=== PATIENT | male | born 2005 | race Caucasian/White ===

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

== ENCOUNTER 2023-01-18 21:00 | Emergency (ER) | payer OTHER ==
[2023-01-18 21:19] VITALS: TEMP 99
--- NOTE | 2023-01-18 22:39 | ED ---
Back Pain HPI - General Chief Complaint: Back Pain/Injury Stated Complaint: Back Pain Time Seen by Provider: 01/18/23 22:35 Source: patient Limitations: no limitations - History of Present Illness Initial Comments: 17-year-old male presenting with chief complaint of lower back pain. Patient has history of cognitive delay and mother is present to help supplement history. About a month ago patient had an injury to the lower back. Mother does not know the explicit injury but states that the patient often lifts heavy. He has had worsening pain since then. Over the last 2 weeks he has had intermittent loss of bowel or bladder function.. I have waited for about a month for a CT which was supposed to be scheduled for Saturday but they were told today that it was canceled. The patient has had intermittent weakness to the lower extremities. No dysuria or hematuria. No fevers or chills. No nausea, vomiting, abdominal pain. - Related Data Home Medications Medication Instructions Recorded Confirmed Famotidine [Pepcid] 20 mg PO DAILY 06/05/19 05/30/20 Omeprazole 20 mg PO HS 06/05/19 05/30/20 Atomoxetine HCl [Strattera] 60 mg PO AC-SUPPER@1830 05/30/20 05/30/20 Cetirizine HCl [Zyrtec] 10 mg PO HS 05/30/20 05/30/20 QUEtiapine [SEROquel] 100 mg PO HS 05/30/20 05/30/20 Sertraline [Zoloft] 100 mg PO HS 05/30/20 05/30/20 metFORMIN HCL [metFORMIN HCL ER] 1,500 mg PO HS 05/30/20 05/30/20 metFORMIN HCL [metFORMIN HCL ER] 750 mg PO DAILY 05/30/20 05/30/20 Allergies Allergy/AdvReac Type Severity Reaction Status Date / Time Cephalosporins Allergy Rash/Hives Verified 06/01/20 18:44 Review of Systems ROS Statement: Those systems with pertinent positive or pertinent negative responses have been documented in the HPI. ROS Other: All systems not noted in ROS Statement are negative. Past Medical History Past Medical History: Diabetes Mellitus, Seizure Disorder Additional Past Medical History / Comment(s): Mom states has some learning disability and functions at the age of a 10 year old, ODD History of Any Multi-Drug Resistant Organisms: None Reported Past Surgical History: Hernia Repair Additional Past Surgical History / Comment(s): wisdom teeth Past Anesthesia/Blood Transfusion Reactions: Previous Problems w/ Anesthesia Additional Past Anesthesia/Blood Transfusion Reaction / Comment(s): mom states "is grabby with females in post op" states "staff should be florence with him, and not to baby him" Past Psychological History: ADD/ADHD, Bipolar Smoking Status: Never smoker Past Alcohol Use History: None Reported Past Drug Use History: None Reported General Exam - General Exam Comments Initial Comments: Visual Physical Exam Vital signs reviewed General: Well-appearing, nontoxic, no acute distress. Head: Normocephalic, atraumatic Eyes: PERRLA, EOMI ENT: Airway patent Chest: Nonlabored breathing Skin: No visual rash, normal skin tone Neuro: Alert and oriented 3 Musculoskeletal: No gross abnormalities Limitations: no limitations General appearance: alert, in no apparent distress Head exam: Present: atraumatic, normocephalic, normal inspection Eye exam: Present: normal appearance, EOMI Neck exam: Present: normal inspection, full ROM Respiratory exam: Present: normal lung sounds bilaterally. Absent: respiratory distress, wheezes, rales, rhonchi, stridor Cardiovascular Exam: Present: regular rate, normal rhythm, normal heart sounds. Absent: systolic murmur, diastolic murmur, rubs, gallop, clicks Rectal exam: Present: normal rectal tone Extremities exam: Present: normal inspection Back exam: Present: normal inspection, tenderness Neurological exam: Present: alert, oriented X3, CN II-XII intact Psychiatric exam: Present: normal affect, normal mood Skin exam: Present: warm, dry, intact, normal color. Absent: rash Course Vital Signs 01/18/23 01/18/23 01/19/23 21:16 22:52 00:58 Temperature 99 F Pulse Rate 97 95 77 Respiratory 16 20 18 Rate Blood Pressure 125/82 147/75 152/90 O2 Sat by Pulse 96 96 97 Oximetry Medical Decision Making - Medical Decision Making Was pt. sent in by a medical professional or institution (, PA, ETHICAL HACKER, urgent care, hospital, or skilled nursing...) When possible be specific @ -No Did you speak to anyone other than the patient for history (EMS, parent, family, police, friend...)? What history was obtained from this source @ -History is supplemented by the patient's mother/legal guardian Did you review nursing and triage notes (agree or disagree)? Why? @ -I reviewed the triage note and disagree, patient and mother state there was an initial injury Were old charts reviewed (outside hosp., previous admission, EMS record, old EKG, old radiological studies, urgent care reports/EKG's, skilled nursing records)? Report findings @ -No old charts were reviewed Differential Diagnosis (chest pain, altered mental status, abdominal pain women, abdominal pain men, vaginal bleeding, weakness, fever, dyspnea, syncope, headache, dizziness, GI bleed, back pain, seizure, CVA, palpatations, mental health, musculoskeletal)? @ - [facility] Differential Back Pain: Strain, zoster, cauda equina syndrome, epidural abscess, vertebral osteomyelitis, discitis, fracture, subluxation, disc herniation, DJD, spinal stenosis, dissection, AAA, pancreatitis, peptic ulcer disease, pyelonephritis, kidney stone this is not meant to be an all-inclusive list. EKG interpreted by me (3pts min.). @ -As above X-rays interpreted by me (1pt min.). @ -None done CT interpreted by me (1pt min.). @ -No evidence for spinal fracture. Grade 1 anterior listhesis of L4 and L5. Minimal degeneration changes throughout the spine. No evidence for significant neural foraminal or spinal canal stenosis. L5 left marvel-sacralization of the vertebrae transverse process. U/S interpreted by me (1pt. min.). @ -None done What testing was considered but not performed or refused? (CT, X-rays, U/S, labs)? Why? @ -None What meds were considered but not given or refused? Why? @ -None Did you discuss the management of the patient with other professionals (professionals i.e. , PA, ETHICAL HACKER, lab, RT, psych nurse, community mental health social worker, boom stick man, teacher, special technical operations officer, case management coordinator)? Give summary @ -Spoke with Dr. Oquendo at [facility], accepted transfer Was smoking cessation discussed for >3mins.? @ -No Was critical care preformed (if so, how long)? @ -No Were there social determinants of health that impacted care today? How? (Homelessness, low income, unemployed, alcoholism, drug addiction, transportation, low edu. Level, literacy, decrease access to med. care, senior living, rehab)? @ -No Was there de-escalation of care discussed even if they declined (Discuss DNR or withdrawal of care, Hospice)? DNR status @ -No What co-morbidities impacted this encounter? (DM, HTN, Smoking, COPD, CAD, Cancer, CVA, ARF, Chemo, Hep., AIDS, mental health diagnosis, sleep apnea, morbid obesity)? @ -None Was patient admitted / discharged? Hospital course, mention meds given and route, prescriptions, significant lab abnormalities, going to OR and other pertinent info. @ -17-year-old male presenting with chief complaint of worsening lower back pain over the last month. Patient has had intermittent loss of bowel and bladder control, as well as lower extremity weakness and numbness. On physical examination there is normal rectal tone. CT shows no significant canal stenosis. Given the patient's high risk features I believe that stat MRI and evaluation by neurosurgery is in his best interest. Patient will be transferred to [facility]. Patient and mother are agreeable with this plan. I d iscussed this case with my attending Dr. Frank. Undiagnosed new problem with uncertain prognosis? @ -No Drug Therapy requiring intensive monitoring for toxicity (Heparin, Nitro, Insulin, Cardizem)? @ -No Were any procedures done? @ -No Diagnosis/symptom? @ -Lower back pain, loss of bowel or bladder control, lower extremity weakness Acute, or Chronic, or Acute on Chronic? @ -acute Uncomplicated (without systemic symptoms) or Complicated (systemic symptoms)? @ -Complicated Side effects of treatment? @ -No Exacerbation, Progression, or Severe Exacerbation? @ -No Poses a threat to life or bodily function? How? (Chest pain, [place], [place], pneumonia, PE, COPD, DKA, ARF, appy, cholecystitis, CVA, Diverticulitis, Homicidal, Suicidal, threat to staff... and all critical care pts) @ -Yes Disposition Clinical Impression: Lower back pain, Loss of bladder control, Lower extremity weakness Disposition: OTHER INSTITUTION NOT DEFINED Condition: Stable Referrals: None,Stated [Primary Care Provider] - 1-2 days Time of Disposition: 00:26 - Out of Hospital Transfer - Req. Specs Out of Hospital Transfer - Requested Specifics: Other Emergency Center ([facility])
[2023-01-18] MEDS ORDERED: KETOROLAC 15 MG/ML 1 ML VIAL IM STA (22:40)
[2023-01-18] MEDS ORDERED: LIDOCAINE 5% PATCH TOPICAL SCH (22:45)
--- NOTE | 2023-01-18 23:34 | CT ---
EXAMINATION TYPE: CT lumbar spine wo con CT DLP: 1141. mGycm, Automated exposure control for dose reduction was used. DATE OF EXAM: 01/18/2023 11:07 PM COMPARISON: None. CLINICAL INDICATION:Male, 17 years old with history of back pain; TECHNIQUE: Multiple axial images were obtained from the midportion of T11 through the sacroiliac chi nts. Soft tissue and bone windows in coronal and sagittal planes were obtained and reviewed. 3-D ref ormats of the bones were created on a separate workstation and submitted for review. Contrast used, none. Oral contrast used: none. FINDINGS: Alignment: There are 5 lumbar type vertebral bodies. Grade 1 anterolisthesis of L4 and L5. Bone: No evidence of fracture is identified. L5 left hemisacralization of the vertebrae transverse p rocess. Discs: T12-L1: No spinal canal or neural foraminal stenosis is identified. L1-L2: No spinal canal or neural foraminal stenosis is identified. L2-L3: No spinal canal or neural foraminal stenosis is identified. L3-L4: No spinal canal or neural foraminal stenosis is identified. L4-L5: No spinal canal or neural foraminal stenosis is identified. L5-S1: No spinal canal or neural foraminal stenosis is identified. Other: None IMPRESSION: 1. No evidence for spinal fracture. 2. Grade 1 anterolisthesis of L4 and L5. 3. Minimal degeneration changes throughout the spine. No evidence for significant neural foraminal or spinal canal stenosis. 4. L5 left hemisacralization of the vertebrae transverse process.
[2023-01-18] MEDS ORDERED: MORPHINE SULFATE 4 MG/ML SYRINGE IVP STA (23:58)
[2023-01-19] MEDS ORDERED: DEXAMETHASONE SOD PHOSPHATE 10 MG/ML 1 ML VIAL IVP STA (00:22)
[2023-01-19 01:02] VITALS: BP 152/90; PULSE 77; RESP 18
== END 2023-01-19 01:02 | disposition other institution (70) ==
LOC: EEVIPCON 21:00 → EC 21:00
DX: M43.16 Spondylolisthesis, lumbar region (principal); M79.662 Pain in left lower leg; R53.1 Weakness; R39.81 Functional urinary incontinence; E11.9 Type 2 diabetes mellitus without complications; F31.9 Bipolar disorder, unspecified; Z79.899 Other long term (current) drug therapy; Z79.2 Long term (current) use of antibiotics; Z88.1 Allergy status to other antibiotic agents
CPT/HCPCS: 99284; 96372; 96374; 72131; J2270; J1885

== ENCOUNTER → 2023-12-23 | Outpatient (CLI) | payer OTHER ==
--- NOTE | 2023-12-24 09:18 | CT ---
EXAMINATION TYPE: CT thoracic spine wo con CT DLP: 1904 mGycm, Automated exposure control for dose reduction was used. DATE OF EXAM: 12/23/2023 6:50 PM COMPARISON: None. CLINICAL INDICATION:Male, 18 years old with history of Z98.1 ARTHRODESIS STATUS; PHH, difficulty walk ing post-op T3/T4 sx TECHNIQUE: Axial images of the thoracic spine were obtained without contrast. Coronal and sagittal re formats were performed. Contrast used: mL of , none Oral contrast used: none FINDINGS: Surgical changes with hardware in place at T3 and T4. Hardware is intact. No evidence for l oosening or metal placement. The adjoining endplates at T3-T4 not fused and demonstrate degeneration changes with osseous body within the disc space possibly within a Schmorl's node. There is no evidenc e of fracture. Minimal degeneration changes throughout the spine. The spinal cord and neural foramina appear patent. There is narrowing of the thecal sac at the level of C4 series 3 image 50 compared to the remainder of the levels. Osseous spur noted at T5-T6 on the right. IMPRESSION: 1. Postsurgical changes with hardware intact and appropriate position. The T3-T4 adjoining endplates are not fused. There is mild bony growth at the level of T4 which may mildly narrow the spinal canal . 2. Osseous spurring at level T5-T6 also present which may mildly displace the thecal sac leftward. 3. No evidence for severe spinal canal or neural foraminal stenosis.
== END | disposition home or self-care (01) ==
LOC: RADCTMAIN 18:16
PROVIDERS: ATTEND Nurse Practitioner Family
DX: R26.2 Difficulty in walking, not elsewhere classified (principal); Z98.1 Arthrodesis status
CPT/HCPCS: 72128

== ENCOUNTER → 2024-06-16 | Outpatient (CLI) | payer OTHER ==
[2024-06-16 14:41] VITALS: BP 119/77; PULSE 94; RESP 16; TEMP 98.3
--- NOTE | 2024-06-16 15:34 | P.SLEEP ---
History of Present Illness H&P Date: 06/16/24 This is a 18-year-old male patient, coming in to be evaluated for sleep apnea. His mother, Tanja, works for [employer] and she is concerned of the possibility of him having obstructive sleep apnea. However, the patient has a extensive number of comorbidities. 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 Subsequently, over the years, he was diagnosed having oppositional defiance, chronic anxiety, chronic bipolar disorder/depression and ongoing learning disabilities. Since young age, the patient also has had difficulties with sleepwalking and sleep talking and is currently snoring loud. In regards to his ongoing bipolar/depression, the patient is being followed up at [facility]. The patient has had episodes where he has not fallen asleep for several days and ultimately he would feel exhausted and fall asleep. Those episodes have not recurred for the past 1 year at least that the patient is currently on a combination of Lamictal and Zoloft. He also suffers from chronic back pain. He has had T3/4 spine fracture with spinal cord compression due to power lifting and he also has had another L4 fracture. He has undergone fusion of the thoracic spine and currently he is on gabapentin and tizanidine and baclofen. He suffers from chronic bronchial asthma. He smokes marijuana, approximately 3 joints a day. In terms of his sleep, the patient goes to bed at around 11 PM and wakes up between 8 and 9 AM in the morning. He feels sleepy during the day. Sometimes takes more than 30 minutes to fall asleep. This is not consistent. He snores loud and he feels excessively fatigued and sleepy during the day. His current [place] score is at 4. He is restless during sleep. He is not doing a whole lot of sleep walking for now. His current [place] score is at 4. He is taking clonidine for his sleep and a dose of 0.2 mg at bedtime. No recent weight gain. He does not drive. No history of any seizure activity. No sleep paralysis, hallucinations or cataplexy. His sleep is fragmented. He is still living with his mother. Review of Systems Constitutional: Reports daytime sleepiness, Reports fatigue, Reports weakness Eyes: denies as per HPI, denies blurred vision, denies bulging eye, denies decreased vision, denies diplopia, denies discharge, denies dry eye, denies irritation, denies itching, denies pain, denies photophobia, denies loss of peripheral vision, denies loss of vision, denies tunnel vision/blind spots Ears: deny: decreased hearing, ear discharge, earache, tinnitus Ears, nose, mouth and throat: Reports as per HPI Breasts: absent: as per HPI, gynecomastia Cardiovascular: Reports as per HPI Respiratory: Reports snoring Gastrointestinal: Reports as per HPI Genitourinary: Reports as per HPI Musculoskeletal: Reports as per HPI (Back pain) Musculoskeletal: absent: ankle pain, ankle stiffness, ankle swelling, as per HPI, elbow pain, elbow stiffness, elbow swelling, foot pain, foot stiffness, foot swelling, hand pain, hand stiffness, hand swelling, hip pain, hip stiffness, hip swelling, knee pain, knee stiffness, knee swelling, shoulder pain, shoulder stiffness, shoulder swelling, wrist pain, wrist stiffness, wrist swelling Integumentary: Reports as per HPI Neurological: Reports as per HPI Psychiatric: Reports anxiety, Reports depression (Bipolar disorder), Reports hypersomnia, Reports insomnia, Reports irritability, Reports mood swings, Reports sleep disturbances Endocrine: Reports as per HPI, Reports fatigue Hematologic/Lymphatic: Reports as per HPI Allergic/Immunologic: Reports as per HPI Past Medical History Past Medical History: Asthma, Diabetes Mellitus, GERD/Reflux, Seizure Disorder Additional Past Medical History / Comment(s): Mom states has some learning disability and functions at the age of a 10 year old, ODD, back pain, allergies (if misses Citirizine for more than 2 days gets a sinus infection, per mom/LG) , sinus headaches, arthritis, snoring, headaches, acid reflux, restless legs History of Any Multi-Drug Resistant Organisms: None Reported Past Surgical History: Back Surgery, Hernia Repair Additional Past Surgical History / Comment(s): wisdom teeth, hardware in back, Past Anesthesia/Blood Transfusion Reactions: Previous Problems w/ Anesthesia Additional Past Anesthesia/Blood Transfusion Reaction / Comment(s): mom states "is grabby with females in post op" states "staff should be [place] with him, and not to baby him" Past Psychological History: ADD/ADHD, Anxiety, Bipolar, Depression Additional Psychological History / Comment(s): ODD Smoking Status: Former smoker Past Alcohol Use History: Rare Past Drug Use History: Marijuana - Past Family History Mother Family Medical History: Asthma, Diabetes Mellitus, Fibromyalgia, GERD/Reflux, Pneumonia Additional Family Medical History / Comment(s): Arthritis, lung problems (COPD - scar tissue on both lungs - at least 25%), snoring, headaches, liver issues - mass found - awaiting ultersound (family hx of liver cancer), mental illness (Bipolar), restless legs (sister has bipolar, depression, anxiety, borderline personality disorder, acid reflux, headaches,arthritis, asthma) father: brain injury, diabetes Medications and Allergies Home Medications Medication Instructions Recorded Confirmed Type Famotidine [Pepcid] 20 mg PO DAILY 06/05/19 05/30/20 History Omeprazole 20 mg PO HS 06/05/19 05/30/20 History Atomoxetine HCl [Strattera] 60 mg PO [id number] 05/30/20 05/30/20 History Cetirizine HCl [Zyrtec] 10 mg PO HS 05/30/20 06/16/24 History QUEtiapine [SEROquel] 100 mg PO HS 05/30/20 05/30/20 History Sertraline [Zoloft] 100 mg PO HS 05/30/20 06/16/24 History metFORMIN HCL [metFORMIN HCL ER] 1,500 mg PO HS 05/30/20 05/30/20 History metFORMIN HCL [metFORMIN HCL ER] 750 mg PO DAILY 05/30/20 05/30/20 History Baclofen 10 mg PO QID 06/16/24 06/16/24 History Ferrous Sulfate [Feosol] 325 mg PO DAILY 06/16/24 06/16/24 History Gabapentin [Neurontin] 300 mg PO TID 06/16/24 06/16/24 History Pantoprazole [Protonix] 40 mg PO DAILY 06/16/24 06/16/24 History Triamcinolone 0.1% Cream [Kenalog 0.1 06/16/24 History 0.1% Cream] cloNIDine 0.2 MG/24HR PATCH 0.2 mg PO DAILY 06/16/24 06/16/24 History [Catapres-TTS] lamoTRIgine [LaMICtal ODT] 50 mg PO DAILY 06/16/24 06/16/24 History tiZANidine HCL 2 mg PO TID 06/16/24 06/16/24 History Allergies Allergy/AdvReac Type Severity Reaction Status Date / Time Cephalosporins Allergy Rash/Hives Verified 06/01/20 18:44 Physical Exam Vitals: Vital Signs Temp Pulse Resp BP Pulse Ox 06/16/24 14:41 98.3 F 94 16 119/77 96 Intake and Output 06/16/24 06/16/24 06/16/24 06:59 14:59 22:59 Other: Weight 107.218 kg The patient appeared well nourished and normally developed. Vital signs as documented. The patient has a Mallampati class IV Head exam is unremarkable. No scleral icterus or corneal arcus noted. Neck is without jugular venous distension, thyromegaly, or carotid bruits. Carotid upstrokes are brisk bilaterally. Lungs are clear to auscultation and percussion. Cardiac exam reveals the PMI to be normally sized and situated. Rhythm is regular. First and second heart sounds normal. No murmurs, rubs or gallops. Scar of the previous T-spine surgery over his back Abdominal exam reveals normal bowel sounds, no masses, no organomegaly and no aortic enlargement. Extremities are nonedematous and both femoral and pedal pulses are normal. Examination of the skin revealed no evidence of significant rashes, suspicious appearing nevi or other concerning lesions. Neurologically, the patient is awake and alert and the patient does not have any focal neurological deficit. Cranial nerves are essentially intact. Assessment and Plan Plan: Chronic fatigue/sleepiness, currently under investigation. Comorbidities are multiple. First and foremost, the patient has had a traumatic brain injury during childhood. The patient's has had sleep disturbance for many years and he was having episodes of insomnia followed by hypersomnia. This could have been related to bipolar disorder and currently the patient is on a combination of Zoloft and Lamictal. He is known to have chronic anxiety/bipolar disorder/depression in addition to learning disability and oppositional defiance. Possibility of obstructive sleep apnea cannot be completely ruled out. He snores loud. He does have sleep fragmentation. His current [place] score is 4. History of traumatic brain injury History of sleepwalking and sleep talking during childhood Loud snoring Chronic anxiety/bipolar disorder/depression Oppositional defiance Bronchial asthma, currently inactive and stable T3/4 fracture with cord compression requiring thoracic spine surgery and fusion L4 fracture Chronic back pain Headaches Acid reflux Daily marijuana smoking Plan Continue current medication Continue following up with [facility] regarding chronic anxiety/depression/bipolar disorder. Patient is currently on a combination of Zoloft and Lamictal Importance of sleep hygiene measures was emphasized Maintain regular sleep schedule Weight loss Optimize pain and the patient is taking muscle relaxants Proceed with a screening polysomnography to rule out possibility of obstructive sleep apnea and further recommendations to follow based on the findings. Sleep Note - Sleep Data ESS Total: 11 - Sleep Note Sleep Note: Temperature: 98.3 F Pulse Rate: 94 Respiratory Rate: 16 Blood Pressure: 119/77 SpO2: 96 Height: 5 ft 11.2 in Weight: 107.218 kg BMI: Neck Circumference: 19.2
== END ==
LOC: 3 N SLEEP 13:43
PROVIDERS: ATTEND Internal Medicine Critical Care Medicine
DX: G47.33 Obstructive sleep apnea (adult) (pediatric) (principal); R06.83 Snoring; F41.9 Anxiety disorder, unspecified; F32.A Depression, unspecified; F91.3 Oppositional defiant disorder; J45.909 Unspecified asthma, uncomplicated; M54.9 Dorsalgia, unspecified; G89.29 Other chronic pain; R51.9 Headache, unspecified; K21.9 Gastro-esophageal reflux disease without esophagitis; F12.90 Cannabis use, unspecified, uncomplicated; F51.3 Sleepwalking [somnambulism]; Z91.81 History of falling; Z87.820 Personal history of traumatic brain injury
CPT/HCPCS: 99211

== ENCOUNTER 2024-07-20 19:40 | Outpatient (CLI) | payer OTHER ==
--- NOTE | 2024-07-26 23:42 | P.PCN ---
Date of Procedure: 07/20/24 Operative Findings: Polysomnography report Date of service is 07/20/2024 History This is a 18-year-old male patient, coming in to be evaluated for sleep apnea. His mother, Tanja, works for [employer] and she is concerned of the possibility of him having obstructive sleep apnea. However, the patient has a extensive number of comorbidities. 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 Subsequently, over the years, he was diagnosed having oppositional defiance, chronic anxiety, chronic bipolar disorder/depression and ongoing learning disabilities. Since young age, the patient also has had difficulties with sleepwalking and sleep talking and is currently snoring loud. In regards to his ongoing bipolar/depression, the patient is being followed up at [facility]. The patient has had episodes where he has not fallen asleep for several days and ultimately he would feel exhausted and fall asleep. Those episodes have not recurred for the past 1 year at least that the patient is currently on a combination of Lamictal and Zoloft. He also suffers from chronic back pain. He has had T3/4 spine fracture with spinal cord compression due to power lifting and he also has had another L4 fracture. He has undergone fusion of the thoracic spine and currently he is on gabapentin and tizanidine and baclofen. He suffers from chronic bronchial asthma. He smokes marijuana, approximately 3 joints a day. In terms of his sleep, the patient goes to bed at around 11 PM and wakes up between 8 and 9 AM in the morning. He feels sleepy during the day. Sometimes takes more than 30 minutes to fall asleep. This is not consistent. He snores loud and he feels excessively fatigued and sleepy during the day. His current [place] score is at 4. He is restless during sleep. He is not doing a whole lot of sleep walking for now. His current [place] score is at 4. He is taking clonidine for his sleep and a dose of 0.2 mg at bedtime. No recent weight gain. He does not drive. No history of any seizure activity. No sleep paralysis, hallucinations or cataplexy. His sleep is fragmented. He is still living with his mother. Physical findings Weight is 236 with a body mass index of 32.7 Technical description The patient was studied using a standard complex polysomnography protocol that included recording of the Lead II EKG, Central, occipital and frontal EEG, right and left outer canthus EOG, submental EMG, right and left anterior tibialis EMG, respiratory airflow by thermocouple and or pressure/flow transducer, respiratory efforts by abdominal and thoracic PVDF belts, oxygen saturation by cable oximetry. Position by observation synchronized the PSG. Equipment used: Profista. Sleep architecture The total recording duration was 432 minutes. The total sleep time was 364.5 minutes. The wake after sleep onset time was 49 minutes. The overall sleep efficiency was 84.4%. The latency to sleep onset was 18.5 minutes. The latest REM sleep was 243.5 minutes. The sleep architecture was characterized by 21.8% stage I, 63.0% stage II, 0.4% stage III and XIV 0.8% REM sleep. The total arousal index was 16.8 Results/respiratory analysis The respiratory analysis showed a total of 29 obstructive events of which 1 was obstructive apnea, 0 was mixed apnea and 22 obstructive hypopneas. The resulting AHI was 3.6. No evidence of any central apneas noted. The respiratory arousal index was 2.3. Oxygenation analysis The patient had a baseline pulse ox of 93% while awake. The lowest oxygen saturation was 81%. The patient spent approximately 3.8 minutes of the sleep time with a pulse ox of below 89% and this accounts for 0.9% of the total record ing time. Arousal events The patient had a total of 102 arousals with an index of 16.8. The respiratory arousal index was 2.3 Periodic movement events There was a total of 140. He removed activity with an index of 23. There was a total of 3 periodic limb movement activity with arousals with an index of 0.5 Cardiac summary Average heart rate was 60 with a heart rate of 54 and maximum heart rate of 68 Assessment Primary snoring, no evidence of any significant sleep breathing disorder and the patient is AHI is at 3.6 No significant nocturnal oxygen desaturations Abnormalities sleep architecture with overexpression of stage I sleep and delayed REM sleep. This could be drug effect. No periodic limb movement activity Chronic fatigue/sleepiness, not related to sleep apnea. Comorbidities are multiple. First and foremost, the patient has had a traumatic brain injury during childhood. The patient's has had sleep disturbance for many years and he was having episodes of insomnia followed by hypersomnia. This could have been related to bipolar disorder and currently the patient is on a combination of Zoloft and Lamictal. He is known to have chronic anxiety/bipolar disorder/depression in addition to learning disability and oppositional defiance. His current [place] score is 4. History of traumatic brain injury History of sleepwalking and sleep talking during childhood Chronic anxiety/bipolar disorder/depression Oppositional defiance Bronchial asthma, currently inactive and stable T3/4 fracture with cord compression requiring thoracic spine surgery and fusion L4 fracture Chronic back pain Headaches Acid reflux Daily marijuana smoking Plan No evidence of any sleep breathing disorder. Patient is AHI is at 3.6. No need for CPAP therapy. Continue current medication Continue following up with [facility] regarding chronic anxiety/depression/bipolar disorder. Patient is currently on a combination of Zoloft and Lamictal Importance of sleep hygiene measures was emphasized Maintain regular sleep schedule Weight loss Optimize pain and the patient is taking muscle relaxants Refer this patient back to the primary care.
== END 2024-07-21 06:10 | disposition home or self-care (01) ==
LOC: 3 N SLEEP 19:40
PROVIDERS: ATTEND Internal Medicine Critical Care Medicine
DX: S32.002A Unstable burst fracture of unspecified lumbar vertebra, initial encounter for closed fracture (principal); S22.000A Wedge compression fracture of unspecified thoracic vertebra, initial encounter for closed fracture; R06.83 Snoring; F31.9 Bipolar disorder, unspecified; F41.9 Anxiety disorder, unspecified; F51.3 Sleepwalking [somnambulism]; F91.3 Oppositional defiant disorder; J45.909 Unspecified asthma, uncomplicated; G89.29 Other chronic pain; K21.9 Gastro-esophageal reflux disease without esophagitis; Z87.820 Personal history of traumatic brain injury; Z79.899 Other long term (current) drug therapy; Z88.1 Allergy status to other antibiotic agents
CPT/HCPCS: 95810